=== PATIENT | male | born 1995 | race Caucasian/White ===

== ENCOUNTER 2022-08-16 12:44 | Emergency (ER) | payer OTHER ==
[~2022-08-16] VITALS: Ht 193 cm; Wt 99.8 kg
[2022-08-16] MEDS ORDERED: AMOX-CLAV 875-1 EACH PO (14:49)
== END 2022-08-16 15:21 | disposition home or self-care (01) ==
LOC: ED 12:44
DX: S81.811A Laceration without foreign body, right lower leg, initial encounter (principal); W22.8XXA Striking against or struck by other objects, initial encounter; Y93.89 Activity, other specified; Y92.89 Other specified places as the place of occurrence of the external cause; Y99.8 Other external cause status